=== PATIENT | female | born 1990 | race Caucasian/White ===

== ENCOUNTER 2017-12-06 11:48 | Emergency (ER) | payer BC, OTHER, SELFPAY ==
[2017-12-06 12:28] LABS: %Neutrophils 64.6 % (42.0-75.0); Hemoglobin 13.9 g/dL (12.0-16.0); Manual Diff?? NO; Mean Corpuscular HGB CONC 33.7 g/dL (32.0-36.0); Mean Corpuscular Hemoglobin 27.3 pg (27.0-31.0); Mean Corpuscular Volume 81.1 fL (81.0-99.0); Mean Platelet Volume 6.8 fL (7.4-10.4); Platelet Count 218 thou/uL (130-400); RBC Distribution Width 12.5 % (11.5-14.5); Red Blood Cell (RBC) Count 5.08 mill/uL (4.20-5.40)
[2017-12-06 12:29] LABS: #Basophils 0.1 thou/uL (0.0-0.2); #Eosinphils 0.2 thou/uL (0.0-0.7); #Monocytes 0.8 thou/uL (0.11-0.59); #Neutrophils 7.1 thou/uL (1.40-6.50); %Basophils 0.4 % (0.0-1.0); %Eosinophils 1.6 % (0.0-10.0); %Monocytes 7.4 % (0.0-10.0); MDiff Complete? YES
[2017-12-06 12:39] LABS: ALT (SGPT) 56 U/L (8-55); AST (SGOT) 23 U/L (5-34); Albumin 4.4 g/dL (3.5-5.0); Alkaline Phosphatase 83 U/L (40-150); Anion Gap 15 mmol/L (10-20); BUN (Urea Nitrogen) 10 mg/dL (7.0-18.7); Bilirubin, Total 1.1 mg/dL (0.2-1.2); Calc. Creatinine Clearance 0 mL/min (70-130); Calcium 9.7 mg/dL (7.8-10.44); Carbon Dioxide 23 mmol/L (22-29); Chloride 107 mmol/L (98-107); Estimated GFR-MDRD 90; Globulin 3.7 g/dL (2.4-3.5); Glucose 93 mg/dL (70-105); Potassium 3.8 mmol/L (3.5-5.1); Protein, Total 8.1 g/dL (6.0-8.3); Sodium 141 mmol/L (136-145)
[2017-12-06 12:41] LABS: CKMB 0.5 ng/mL (0-6.6); Troponin I Less than 0.010 ng/mL (< 0.028)
[2017-12-06] MEDS ORDERED: Fentanyl 100 MCG/2 ML VIAL ONE (12:46)
[2017-12-06 13:03] LABS: BHCG - Serum Negative (NEGATIVE); Pregs Control Background? CLEAR/WHITE (CLR/WHITE); Pregs Control Bar Appear? YES (CONTROL BAR)
--- NOTE | 2017-12-06 13:03 | RAD ---
CHEST 2 VIEWS: Date: 12/06/17 No prior films available for comparison. FINDINGS: The heart is normal in size and the lungs are clear. There is no vascular congestion, edema, or pleur al effusion. No lobar consolidation appreciated. The mediastinum in the hilar regions appear normal. IMPRESSION: No acute thoracic findings. POS: HOME
--- NOTE | 2017-12-06 13:35 | CT ---
CT ANGIO OF THE CHEST WITH CONTRAST: Date: 12/06/[address] of the chest was performed for evaluation of chest pain and an elevated D-Dimer. Axial slic es were acquired after a bolus of IV contrast, then coronal and sagittal reconstructions were done. FINDINGS: This study is positive for pulmonary emboli. Multiple emboli are seen, mainly in each lower lobe. Reyes e of the emboli start in some of the first segments off the main pulmonary arteries. Findings are smith ateral, perhaps with a little larger clots on the left than on the right. The heart is mildly enlarged. There is no pericardial fluid. There may be a trace of pleural fluid on the left, but there are no large effusions. Patches of atelectasis are seen throughout the lungs, bu t no major lobar consolidations were present. No pulmonary masses are detected. Scans into the upper abdomen show no acute changes there. The hepatic size may be upper normal. The s pleen is not enlarged. IMPRESSION: Multiple pulmonary emboli, particularly in the lower lobes, with some beginning in branches immediate ly off of the main pulmonary arteries, particularly the left side. Findings called to Dr. Christie at 1324 hours on 12/06/17. CODE CR. POS: HOME
[2017-12-06] MEDS ORDERED: Enoxaparin Sodium 100 MG/ML SYRINGE ONE (13:47)
[2017-12-06] MEDS ORDERED: Morphine 4 MG/ML Carpuject ONE (15:09)
[2017-12-07 01:15] LABS: #Lymphocytes 2.9 thou/uL (1.20-3.40)
== END 2017-12-06 13:25 | disposition short-term general hospital (02) ==
LOC: BURERS 11:48
DX: I26.99 Other pulmonary embolism without acute cor pulmonale (principal)
CPT/HCPCS: 36415; 71046; 71275; 80053; 82553; 84484; 84703; 85025; 85379; 93005; 96372; 96374; 96375; J1650; J2270; J3010

== ENCOUNTER 2020-12-14 07:35 | Emergency (ER) | payer BC, OTHER ==
[2020-12-14] MEDS ORDERED: Ibuprofen 200 MG TAB ONE (08:29)
[2020-12-14] MEDS ORDERED: cefTRIAXone\\ROCEPHIN 1 GM VIAL ONE (08:29)
[2020-12-14] MEDS ORDERED: Lidocaine 1% PF 5 ML VIAL ONE (08:29)
== END 2020-12-14 08:40 | disposition home or self-care (01) ==
LOC: BURERS 07:35
DX: K04.7 Periapical abscess without sinus (principal); K03.81 Cracked tooth; Z86.711 Personal history of pulmonary embolism
CPT/HCPCS: 96372; 99282; J0696